=== PATIENT | female | born 1995 | race Caucasian/White ===

== ENCOUNTER 2017-01-28 13:38 | Emergency (ER) | payer BC ==
[~2017-01-28] VITALS: Ht 170.2 cm; Wt 73.5 kg
[2017-01-28 13:44] VITALS: TEMP 36.9; Ht 170.2 cm; Wt 73.5 kg
[2017-01-28] MEDS ORDERED: LAMO200T38 PO (14:13)
[2017-01-28] MEDS ORDERED: BCPILLS PO (14:13)
[2017-01-28] MEDS ORDERED: AMPH20TA2 PO (14:13)
[2017-01-28 14:30] LABS: URINE APPEARANCE CLEAR (CLEAR); URINE BILIRUBIN NEG (NEG); URINE COLOR YELLOW; URINE EPITHELIAL CELL AUTO >30 /lpf (0-5); URINE NITRITE NEG (NEG); URINE PH 7.5 (4.5-7.5); URINE SPECIFIC GRAVITY 1.014 (1.000-1.030); UROBILINOGEN NEG (NEG); ZZUR CULT IF INDIC CLEAN CATCH NO
[2017-01-28 14:31] LABS: BASO % 0.4 %; BASO ABS # 0.04 K/uL (0-0.2); COMPLETE YES; EOS % 0.7 %; HEMATOCRIT 40.3 % (37-47); IG% 0.1 %; LYMPH % 28.5 %; LYMPH ABS # 2.54 K/uL (1.2-3.4); MEAN CELL VOLUME 83.8 fL (80-100); MEAN CORPUSCULAR HEMOGLOBIN 28.9 pg (25-34); MEAN CORPUSCULAR HGB CONC 34.5 g/dl (32-36); MEAN PLATELET VOLUME 11.1 fL (7.4-10.4); MONO % 5.2 %; NEUT % 65.1 %; PLATELET COUNT 331 K/uL (130-400); RED BLOOD COUNT 4.81 M/uL (4.2-5.4); WHITE BLOOD COUNT 8.91 K/uL (4.8-10.8)
[2017-01-28 14:32] LABS: MANUAL MICROSCOPIC REQUIRED? NO; REVIEW REQ? NO
[2017-01-28] MEDS ORDERED: LORAZEPAM 0.5 MG TAB SL STA (14:44)
[2017-01-28 14:51] LABS: BUN/CREATININE RATIO 10.7 (10-20); CALCIUM 8.7 mg/dl (8.5-10.1); CREATININE 0.78 mg/dl (0.60-1.20); POTASSIUM 3.9 mmol/L (3.5-5.1)
[2017-01-28 15:00] LABS: ACETAMINOPHEN < 2 ug/ml (10-30)
[2017-01-28 15:02] LABS: ALB/GLOB RATIO 0.9 (0.9-2); THYROID STIMULATING HORMONE 0.757 uIu/ml (0.300-4.500)
[2017-01-28 15:15] LABS: BENZODIAZEPINE, URINE NEG (NEG); COCAINE,URINE NEG (NEG); PHENCYCLIDINE, URINE NEG (NEG)
[2017-01-28 16:07] VITALS: BP 133/89; PULSE 99; O2SAT 100
--- NOTE | 2017-01-28 21:22 | EMERGENCY ROOM VISIT NOTE ---
History Report prepared by Shu: John Washburn Under the Supervision of: Dr. Efrain Hassan D.O. First contact with patient: 14:25 Chief Complaint: MENTAL HEALTH EVALUATION Stated Complaint: DEPRESSION, ANXIETY, PANIC ATTACKS History of Present Illness The patient is a 21 year old female who presents to the Emergency Room with complaints of an episode of anxiety beginning earlier today. She admits to having a history of depression and anxiety, but that her anxiety is worse today and she is also having panic attacks. She has had these symptoms before and can usually cope, but is unable to cope currently. The patient reports there is much stress in her life recently. She recently had roommate issues as her roommate got a dog but the patient is allergic, which has caused her to need to move out of her apartment. The patient also reports stress at home with her family as they are dealing with the recent of her grandmother. She notes that the stresses she has does not usually affect her school work, but it is now. She reports taking Lamictal for depression, and has Ativan for anxiety but does not take the Ativan often as she indicates that is does not work for her. The patient denies any suicidal or homicidal ideations, and denies any drug use. She admits to having shortness of breath with her anxiety which is not new , but denies any headache, chest pain, nausea, vomiting, diarrhea, or urinary symptoms. Shortness of breath is always present when she becomes anxious. This is in no way change from her previous episodes. Her last known menstrual period was 3 weeks ago. The patient states that she follows with a doctor in [place] for her anxiety and depression, but does not follow with anyone locally. She was last in [place] this past November, but notes the doctor wants to wait until the patient graduates and his home this March before changing any medications. The patient adds that she goes home every weekend. Source of History: patient Onset: earlier today Position: other (global) Quality: other (anxiety) Timing: other (episode) Associated Symptoms: + SOB, No abdominal pain, No chest pain, No diarrhea, No nausea, No urinary symptoms, No vomiting Note: The patient denies suicidal or homicidal ideations. Review of Systems See HPI for pertinent positives & negatives. A total of 10 systems reviewed and were otherwise negative. Past Medical & Surgical Medical Problems: (1) History of anxiety (2) History of depression Family History Diabetes mellitus FH: cancer FH: gallbladder disease Hypertension Kidney stones Social History Smoking Status: Never Smoker Smokeless Tobacco Use: No Alcohol Use: occasionally Drug Use: none Housing Status: lives with family Occupation Status: employed, [employer] student Current/Historical Medications Scheduled Amphetamine-Dextroamphetamine 20MG (Adderall 20MG), 20 MG PO DAILY Control Pills ( Control Pills), 1 TAB PO DAILY Lamotrigine (Lamictal), 200 MG PO DAILY Allergies Coded Allergies: Peanut (Unverified Allergy, Unknown, UNKNOWN, 01/28/17) Pecan (Unverified Allergy, Unknown, UNKNOWN, 01/28/17) Shellfish Allergy (Unverified Allergy, Unknown, UNKNOWN, 01/28/17) Physical Exam Vital Signs Date Time Temp Pulse Resp B/P Pulse Ox O2 Delivery O2 Flow Rate FiO2 01/28/17 16:07 99 16 133/89 100 Room Air 01/28/17 14:26 96 18 140/81 100 Room Air 01/28/17 13:44 36.9 101 18 146/95 99 Room Air Physical Exam GENERAL: Sitting up in bed, tearful, non-toxic, no acute distress. EYE EXAM: Conjunctiva injected, PERRL and EOM's grossly intact OROPHARYNX: no exudate, no erythema, lips, buccal mucosa, and tongue normal and mucous membranes are moist NECK: supple, no nuchal rigidity, no adenopathy, non-tender LUNGS: Clear to auscultation. Normal chest wall mechanics HEART: no murmurs, S1 normal and S2 normal ABDOMEN: abdomen soft, non-tender, normo-active bowel sounds, no masses, no rebound or guarding. BACK: Back is symmetrical on inspection and there is no deformity, no midline tenderness, no CVA tenderness. SKIN: no rashes and no bruising UPPER EXTREMITIES: upper extremities are grossly normal. LOWER EXTREMITIES: No pitting edema. NEURO EXAM: Normal sensorium, cranial nerves II-XII grossly intact, normal speech, no gross weakness of arms, no gross weakness of legs. Gross sensation intact. PSYCH: Denies suicidal or homicidal ideations. Denies auditory or visual hallucinations. Admits to depression. Medical Decision & Procedures Laboratory Results 01/28/17 14:18 Red Blood Count 4.81, Mean Corpuscular Volume 83.8, Mean Corpuscular Hemoglobin 28.9, Mean Corpuscular Hemoglobin Concent 34.5, Mean Platelet Volume 11.1, Neutrophils (%) (Auto) 65.1, Lymphocytes (%) (Auto) 28.5, Monocytes (%) (Auto) 5.2, Eosinophils (%) (Auto) 0.7, Basophils (%) (Auto) 0.4, Neutrophils # (Auto) 5.80, Lymphocytes # (Auto) 2.54, Monocytes # (Auto) 0.46, Eosinophils # (Auto) 0.06, Basophils # (Auto) 0.04 01/28/17 14:18 Test 01/28/17 13:58 01/28/17 14:18 Urine Color YELLOW Urine Appearance CLEAR (CLEAR) Urine pH 7.5 (4.5-7.5) Urine Specific [place] 1.014 (1.000-1.030) Urine Protein NEG (NEG) Urine Glucose (UA) NEG (NEG) Urine Ketones NEG (NEG) Urine Occult Blood NEG (NEG) Urine Nitrite NEG (NEG) Urine Bilirubin NEG (NEG) Urine Urobilinogen NEG (NEG) Urine Leukocyte Esterase MODERATE (NEG) Urine WBC (Auto) 5-10 /hpf (0-5) Urine RBC (Auto) 0-4 /hpf (0-4) Urine Hyaline Casts (Auto) 1-5 /lpf (0-5) Urine Epithelial Cells (Auto) >30 /lpf (0-5) Urine Bacteria (Auto) NEG (NEG) Urine Test NEG (NEG) Urine Opiates Screen NEG (NEG) Urine Methadone, Qualitative NEG (NEG) Urine Barbiturates NEG (NEG) Urine Phencyclidine (PCP) Level NEG (NEG) Ur Amphetamine/Methamphetamine POS (NEG) MDMA (Ecstasy) Screen NEG (NEG) Urine Benzodiazepines Screen NEG (NEG) Urine Cocaine Metabolite NEG (NEG) Urine Marijuana (THC) POS (NEG) White Blood Count 8.91 K/uL (4.8-10.8) Red Blood Count 4.81 M/uL (4.2-5.4) Hemoglobin 13.9 g/dL (12.0-16.0) Hematocrit 40.3 % (37-47) Mean Corpuscular Volume 83.8 fL (80-100) Mean Corpuscular Hemoglobin 28.9 pg (25-34) Mean Corpuscular Hemoglobin Concent 34.5 g/dl (32-36) Platelet Count 331 K/uL (130-400) Mean Platelet Volume 11.1 fL (7.4-10.4) Neutrophils (%) (Auto) 65.1 % Lymphocytes (%) (Auto) 28.5 % Monocytes (%) (Auto) 5.2 % Eosinophils (%) (Auto) 0.7 % Basophils (%) (Auto) 0.4 % Neutrophils # (Auto) 5.80 K/uL (1.4-6.5) Lymphocytes # (Auto) 2.54 K/uL (1.2-3.4) Monocytes # (Auto) 0.46 K/uL (0.11-0.59) Eosinophils # (Auto) 0.06 K/uL (0-0.5) Basophils # (Auto) 0.04 K/uL (0-0.2) RDW Standard Deviation 38.7 fL (36.4-46.3) RDW Coefficient of Variation 12.7 % (11.5-14.5) Immature Granulocyte % (Auto) 0.1 % Immature Granulocyte # (Auto) 0.01 K/uL (0.00-0.02) Anion Gap 7.0 mmol/L (3-11) Est Creatinine Clear Calc Drug Dose 110.0 ml/min Estimated GFR () 125.1 Estimated GFR (Non- 107.9 BUN/Creatinine Ratio 10.7 (10-20) Calcium Level 8.7 mg/dl (8.5-10.1) Total Bilirubin 0.3 mg/dl (0.2-1) Aspartate Amino Transf (AST/SGOT) 21 U/L (15-37) Alanine Aminotransferase (ALT/SGPT) 32 U/L (12-78) Alkaline Phosphatase 84 U/L (45-117) Total Protein 7.9 gm/dl (6.4-8.2) Albumin 3.7 gm/dl (3.4-5.0) Globulin 4.2 gm/dl (2.5-4.0) Albumin/Globulin Ratio 0.9 (0.9-2) Thyroid Stimulating Hormone (TSH) 0.757 uIu/ml (0.300-4.500) Salicylates Level < 1.7 mg/dl (2.8-20) Acetaminophen Level < 2 ug/ml (10-30) Ethyl Alcohol mg/dL < 3.0 mg/dl (0-3) Laboratory results per my review. Medications Administered Medications (Trade) Dose Ordered Sig/Gudelia Route Start Time Stop Time Status Last Admin Dose Admin Lorazepam (Ativan Tab) 0.5 mg NOW STAT SL 01/28/17 14:44 01/28/17 14:45 DC 01/28/17 14:51 0.5 MG ED Course ED COURSE: Vital signs were reviewed and showed tachycardic. The patients medical record was reviewed The above diagnostic studies were performed and reviewed. ED treatments and interventions as stated above. 1428: The patient was evaluated in room A6. A complete history and physical examination was performed. 1444: Ordered Ativan Tab 0.5 mg SL. 1615: Upon reevaluation, the patient is doing well. She tells me that she has plans to graduate college and attend graduate school. I discussed my findings with the patient and she understands and agrees with the treatment plan. Based on the patients age, coexisting illnesses, exam and lab findings the decision to treat as an outpatient was made. The patient remained stable while under my care. The patient appeared well at the time of discharge. Medical Decision Differential diagnosis: Etiologies such as mood disorder, infection, hypoglycemia, electrolyte abnormalities, cardiac sources, intracerebral event, toxicologic, neurologic, as well as others were entertained. Patient is a 19-year-old female with a history of anxiety and depression who presents the ER for worsening of her symptoms. She denies any suicidal or homicidal ideations. She denies any auditory or visual hallucinations. Exacerbating symptoms are that her roommate has a dog and she had to move out. She has been very depressed since then. She is graduating this spring. She is looking forward to graduation and going to graduate school for psychiatry. She is evaluated by our psych liaison. She notes that she does not meet any inpatient criteria and agree with this. Patient felt stable to go home. She is going home this and will try to follow-up with her therapist at home. Patient was discharged to follow-up with her outpatient therapist and instructed to continue her medications. She was given a dose of Ativan in the ER and notes that this did work. I encouraged her to use her prescription which she has at home. Discussed with Pt concerning signs and symptoms to watch out for. Pt was instructed to follow up with their PCP and discussed with the patient their option to return to the ED at anytime for persistent or worsening symptoms. The appropriate anticipatory guidance and out-patient management, including indications for return to the emergency department, were explained at length to the patient and understood. Impression Primary Impression: Acute anxiety Additional Impression: Depression Scribe Attestation The scribe's documentation has been prepared under my direction and personally reviewed by me in its entirety. I confirm that the note above accurately reflects all work, treatment, procedures, and medical decision making performed by me. Departure Information Dispostion Home / Self-Care Referrals No Doctor, Assigned (PCP) Forms HOME CARE DOCUMENTATION FORM, IMPORTANT VISIT INFORMATION Patient Instructions Anxiety Body Response, Depression Causes, My [facility] Additional Instructions Please follow up with your primary care doctor with in the next 24 hours. Any worsening of your symptoms, please return to the ED immediately. This includes thoughts of self-harm, thoughts of harming others, worsening depression not eating or drinking, not caring for herself, not going to classes, or any other concerning signs or symptoms from your standpoint. Please contact your therapist to get the earliest appointment as possible. Problem Qualifiers Additional Impression: Depression Depression Type: unspecified Qualified Codes: F32.9 - Major depressive disorder, single episode, unspecified
[2017-02-02 22:40] LABS: SYNTHETIC CANNABINOIDS QL URIN NEGATIVE (Negative)
== END 2017-01-28 16:21 | disposition home or self-care (01) ==
LOC: C.EDB 13:41 → C.EDA 16:21
DX: F41.9 Anxiety disorder, unspecified (principal); F32.9 Major depressive disorder, single episode, unspecified; Z83.3 Family history of diabetes mellitus; Z83.79 Family history of other diseases of the digestive system; Z82.49 Family history of ischemic heart disease and other diseases of the circulatory system; Z84.1 Family history of disorders of kidney and ureter